=== PATIENT | male | born 1935 | race Caucasian/White ===

== ENCOUNTER 2018-03-11 12:17 | Inpatient (IN) ==
[2018-03-11] MEDS ORDERED: ONDANSETRON 4 MG/2 ML VIAL IV PRN (13:25)
[2018-03-11] MEDS ORDERED: MORPHINE 4 MG/1 ML VIAL IV PRN (13:25)
[2018-03-11] MEDS ORDERED: PROMETHAZINE 25 MG/1 ML VIAL IM PRN (13:25)
[2018-03-11] MEDS ORDERED: traMADol 50 MG TABLET PO PRN ×2 (13:25→21:36)
[2018-03-11] MEDS ORDERED: MAGNESIUM HYDROXIDE SUSP 30 ML UDCUP PO PRN (13:25)
[2018-03-11] MEDS ORDERED: ACETAMINOPHEN 325 MG TABLET PO PRN (13:25)
[2018-03-11 15:29] LABS: Basophils % 0.3 % (0.0-0.8); Eosinophils % 0.1 % (0.00-10.9); Hematocrit 43.4 VOL% (42.0-52.0); Hemoglobin 14.5 GM/DL (14.0-18.0); Immature Granulocytes % 0.4 %; Immature Granulocytes Absolute 0.06 #; Lymphocytes % 6.6 % (21.2-54.2); Mean Corpuscular HGB Conc 33.4 GM/DL (32-36); Mean Corpuscular Hemoglobin 30 PG (27-34); Mean Corpuscular Volume 90.6 FL (87-102); Mean Platelet Volume 10.8 FL (9.6-12.0); Monocytes # 0.9 10*3/uL (0.11-0.8); Monocytes % 6.2 % (1.7-12.7); Neutrophils # 12.7 10*3/uL (1.4-7.4); Neutrophils % 86.4 % (38.7-73.9); Red Blood Count 4.79 MC/CUMM (3.8-5.5); Red Cell Distribution Width 13.3 % (9.3-17.3)
[2018-03-11 15:51] LABS: Platelet Count 241 T/CUMM (130-400); White Blood Count 14.7 T/CUMM (4-12)
[2018-03-11 15:52] LABS: Albumin 3.8 G/DL (3.4-5.0); Calcium 9.1 MG/DL (8.5-10.1); Osmolality,Calculated 275.7 MOS/KG (273-304); Total Protein 7.7 G/DL (6.4-8.3)
[2018-03-11] MEDS: cefTRIAXone 500 MG in SYRINGE 1 EACH IV SCH (16:07)
[2018-03-11] MEDS: SODIUM CHLORIDE 0.45% 1,000 ML IV SCH ×2 (16:07→20:32)
[2018-03-11] MEDS: TAMSULOSIN 0.4 MG CAPSULE PO SCH (19:11)
[2018-03-11] MEDS: DOCUSATE SODIUM 100 MG CAPSULE PO SCH (20:31)
[2018-03-11] MEDS: FAMOTIDINE 20 MG TABLET PO SCH (20:31)
[2018-03-11 21:13] LABS: Apearance,Urine CLEAR (Clear); Bacteria,Urine Occasional /HPF (Few); Bilirubin,Urine Negative (Negative); Blood, Urine Small mg/dL (Negative); Glucose,Urine (UA) Negative (Negative); Ketones,Urine 5 mg/dL (Negative); Nitrite,Urine Negative (Negative); Protein,Urine Negative; RBC,Urine 1 /HPF (0-4); Urine Color Yellow (Yellow); Urine Specific Gravity 1.006 (1.001-1.035); Urine Urobilinogen < 2.0 EU/DL (0.2-1.0); WBC,Urine <1 /HPF (0-6)
[2018-03-11] MEDS ORDERED: ASPIRIN EC 325 MG TABLET PO PRN (21:36)
[2018-03-12] MEDS: SODIUM CHLORIDE 0.45% 1,000 ML IV SCH ×3 (05:01→21:12)
[2018-03-12 06:28] LABS: Basophils # 0.1 10*3/uL (0.0-0.2); Basophils % 0.7 % (0.0-0.8); Eosinophils # 0.1 10*3/uL (0.0-0.87); Hematocrit 38.1 VOL% (42.0-52.0); Hemoglobin 12.7 GM/DL (14.0-18.0); Immature Granulocytes Absolute 0.07 #; Lymphocytes # 1.3 10*3/uL (1.4-4.0); Mean Corpuscular HGB Conc 33.3 GM/DL (32-36); Mean Corpuscular Hemoglobin 30 PG (27-34); Mean Corpuscular Volume 90.7 FL (87-102); Mean Platelet Volume 10.5 FL (9.6-12.0); Monocytes # 0.9 10*3/uL (0.11-0.8); Monocytes % 13.3 % (1.7-12.7); Neutrophils # 4.6 10*3/uL (1.4-7.4); Platelet Count 183 T/CUMM (130-400); Red Cell Distribution Width 13.2 % (9.3-17.3)
[2018-03-12 07:00] LABS: Calcium 8.2 MG/DL (8.5-10.1); Osmolality,Calculated 278.4 MOS/KG (273-304); Potassium 3.7 MMOL/L (3.5-5.1)
[2018-03-12] MEDS: DOCUSATE SODIUM 100 MG CAPSULE PO SCH ×2 (09:54→21:11)
[2018-03-12] MEDS: LOSARTAN 25 MG TABLET PO SCH (09:54)
[2018-03-12] MEDS: TAMSULOSIN 0.4 MG CAPSULE PO SCH ×2 (09:54→21:11)
[2018-03-12] MEDS: FAMOTIDINE 20 MG TABLET PO SCH ×2 (09:54→21:11)
[2018-03-12] MEDS: cefTRIAXone 500 MG in SYRINGE 1 EACH IV SCH (15:44)
[2018-03-12] MEDS ORDERED: HYDROmorphone 2 MG/1 ML VIAL IV PRN (17:08)
[2018-03-12] MEDS ORDERED: MAGNESIUM HYDROXIDE SUSP 30 ML UDCUP PO ONE (17:20)
[2018-03-12] MEDS ORDERED: BISACODYL 10 MG SUPP RECTAL ONE (21:00)
[2018-03-12] MEDS: SIMETHICONE CHEW 80 MG TABLET PO SCH (21:11)
[2018-03-12] MEDS: cloNIDine 0.1 MG TABLET PO SCH (23:05)
[2018-03-13 06:25] LABS: Calcium 8.1 MG/DL (8.5-10.1); Osmolality,Calculated 274.7 MOS/KG (273-304); Potassium 4.5 MMOL/L (3.5-5.1)
[2018-03-13] MEDS ORDERED: cefTRIAXone 1,000 MG in SYRINGE 1 EACH IV ONE (07:00)
[2018-03-13] MEDS: SODIUM CHLORIDE 0.45% 1,000 ML IV SCH ×3 (07:21→23:33)
[2018-03-13] MEDS: TAMSULOSIN 0.4 MG CAPSULE PO SCH ×2 (09:00→21:46)
[2018-03-13] MEDS: SIMETHICONE CHEW 80 MG TABLET PO SCH ×3 (09:00→21:46)
[2018-03-13] MEDS: DOCUSATE SODIUM 100 MG CAPSULE PO SCH ×2 (09:00→21:46)
[2018-03-13] MEDS: FAMOTIDINE 20 MG TABLET PO SCH ×2 (09:00→21:46)
[2018-03-13] MEDS ORDERED: SEVOFLURANE 1 UNIT/15 MINUTE INH ONE (13:08)
[2018-03-13] MEDS ORDERED: PROPOFOL 200 MG/20 ML VIAL IV ONE (13:08)
[2018-03-13] MEDS ORDERED: fentaNYL 100 MCG/2 ML VIAL ONE (13:09)
[2018-03-13] MEDS ORDERED: ONDANSETRON 4 MG/2 ML VIAL ONE (13:09)
[2018-03-13] MEDS ORDERED: MIDAZOLAM 2 MG/2 ML VIAL ONE (13:09)
[2018-03-13] MEDS ORDERED: LACTATED RINGERS 1,000 ML IV ONE (13:10)
[2018-03-13] MEDS ORDERED: NEOSTIGMINE 10 MG/10 ML VIAL ONE (13:10)
[2018-03-13] MEDS ORDERED: GLYCOPYRROLATE 0.4 MG/2 ML VIAL ONE (13:10)
[2018-03-13] MEDS ORDERED: ROCURONIUM 100 MG/10 ML VIAL IV ONE (13:10)
[2018-03-13] MEDS: PHENAZOPYRIDINE 95 MG TABLET PO SCH (16:35)
[2018-03-13] MEDS: LOSARTAN 25 MG TABLET PO SCH (16:35)
[2018-03-13] MEDS: cefTRIAXone 500 MG in SYRINGE 1 EACH IV SCH (16:42)
[2018-03-13] MEDS: cloNIDine 0.1 MG TABLET PO SCH (21:46)
[2018-03-14] MEDS: FAMOTIDINE 20 MG TABLET PO SCH (09:38)
[2018-03-14] MEDS: PHENAZOPYRIDINE 95 MG TABLET PO SCH (09:38)
[2018-03-14] MEDS: DOCUSATE SODIUM 100 MG CAPSULE PO SCH (09:39)
[2018-03-14] MEDS: LOSARTAN 25 MG TABLET PO SCH (09:39)
[2018-03-14] MEDS: SIMETHICONE CHEW 80 MG TABLET PO SCH (09:39)
[2018-03-14] MEDS: TAMSULOSIN 0.4 MG CAPSULE PO SCH (09:39)
[2018-03-14 10:12] VITALS: BP 124/67
[2018-03-14] MEDS: SODIUM CHLORIDE 0.45% 1,000 ML IV SCH (10:16)
[2018-03-18 21:21] LABS: Stone Source Left Ureter
== END 2018-03-14 11:54 | disposition home or self-care (01) | DRG 669 ==
LOC: N.5E 14:02
PROVIDERS: ADMIT Internal Medicine; ATTEND Internal Medicine